=== PATIENT | female | born 1995 | race Caucasian/White ===

== ENCOUNTER → 2018-09-15 | Outpatient (CLI) | payer OTHER ==
--- NOTE | 2018-09-15 11:41 | RADIOLOGY IMAGING REPORT ---
FACILITY: [facility] PATIENT NAME: Kailey Bowling : 1995 MR: [id number] V: [id number] EXAM DATE: ORDERING PHYSICIAN: RJ GONZALEZ TECHNOLOGIST: Location: [facility] Patient: Kailey Bowling : 1995 Visit/Account:[id number] Date of Sevice: 09/15/2018 L-SPINE >4 VIEWS HISTORY: Fall. Low back pain. Radiating to right leg. AP, lateral, oblique and coned-down sacral views FINDINGS: No compression deformities or fractures. Sacrum and coccyx are unremarkable. Oblique views demonstr ates well-maintained facet joints with no facet fracture or disruption. Disc spaces are well-maintai micheal at all levels. IUD noted in the pelvis. Impression: 1. Negative lumbar spine for acute pathology. Report Dictated By: Mac Harding MD at 09/15/2018 11:34 AM Report E-Signed By: Mac Harding MD at 09/15/2018 11:36 AM WSN:[email or web address]
--- NOTE | 2018-09-15 11:42 | RADIOLOGY IMAGING REPORT ---
[place] [facility] [place] NAME: Kialey Bowling : 1995 MR: [id number] V: [id number] EXAM DATE: ORDERING PHYSICIAN: RJ GONZALEZ TECHNOLOGIST: Location: [facility] Patient: Kailey Bowling : 1995 Visit/Account:[id number] Date of Sevice: 09/15/2018 SACRUM & COCCYX HISTORY: Fall Sacrum and coccyx FINDINGS: AP and lateral films demonstrates no sacral coccygeal fracture. SI joints well-maintained. Visualiz ed superior and inferior pubic rami well-maintained. IUD within the pelvis. IMPRESSION: 1. Negative sacrum/coccyx views for acute bony pathology Report Dictated By: Mac Harding MD at 09/15/2018 11:37 AM Report E-Signed By: Mac Harding MD at 09/15/2018 11:38 AM WSN:[email or web address]
== END ==
LOC: RAD 10:21
PROVIDERS: ATTEND Nurse Practitioner Family
DX: M54.5 Low back pain (principal)
CPT/HCPCS: 72120; 72220